=== PATIENT | female | born 1960 | race Caucasian/White ===

== ENCOUNTER 2019-06-06 06:00 | Outpatient (RCR) | payer MEDICAID, SELFPAY | END 2019-06-21 23:59 | disposition home or self-care (01) | LOC: MPT 06:00 | PROVIDERS: Family Provider Family Medicine; PCP Family Medicine; Visit Provider Family Medicine | DX: M54.5 Low back pain (principal) | CPT/HCPCS: 97110; 97161; 97530 ==

== ENCOUNTER 2019-06-22 06:00 | Outpatient (RCR) | payer MEDICAID, SELFPAY | END 2019-07-20 23:59 | disposition home or self-care (01) | LOC: MPT 06:00 | PROVIDERS: Family Provider Family Medicine; PCP Family Medicine; Visit Provider Family Medicine | DX: M54.5 Low back pain (principal) | CPT/HCPCS: 97110; 97530 ==

== ENCOUNTER 2019-07-21 06:00 | Outpatient (RCR) | payer MEDICAID, SELFPAY | END 2019-08-20 23:59 | disposition home or self-care (01) | LOC: MPT 06:00 | PROVIDERS: Family Provider Family Medicine; PCP Family Medicine; Visit Provider Family Medicine | DX: M54.5 Low back pain (principal) | CPT/HCPCS: 97110; 97530 ==

== ENCOUNTER 2019-08-21 06:00 | Outpatient (RCR) | payer MEDICAID, SELFPAY | END 2019-09-19 23:59 | disposition home or self-care (01) | LOC: MPT 06:00 | PROVIDERS: Family Provider Family Medicine; PCP Family Medicine; Visit Provider Family Medicine | DX: M54.5 Low back pain (principal) | CPT/HCPCS: 97110; 97530 ==

== ENCOUNTER 2019-09-23 15:51 | Outpatient (CLI) | payer MEDICAID, SELFPAY ==
--- NOTE | 2019-09-23 | XR_ITS ---
WS: [id number] XR lumbar spine f/e only [id number] REASON FOR EXAM: LOW BACK PAIN FINDINGS: The disc spaces and vertebral bodies are all normal. No fractures of the spinous processes, transverse processes, Lamina, pedicles, The disc spaces and vertebral bodies are all normal. Normal flexion-extension. A mild scoliotic curve convex to the left is seen. XR/XR lumbar spine f/e only [id number] IMPRESSION: Negative lumbar spine series
== END 2019-09-23 15:52 | disposition home or self-care (01) ==
PROVIDERS: Family Provider Family Medicine; PCP Family Medicine; Visit Provider Nurse Practitioner
DX: M54.5 Low back pain (principal)
CPT/HCPCS: 72120

== ENCOUNTER → 2020-03-27 15:15 | Outpatient (BNVA) | payer MEDICAID, SELFPAY | PROVIDERS: Family Provider Family Medicine; PCP Family Medicine; Visit Provider Counselor Professional | DX: F33.2 Major depressive disorder, recurrent severe without psychotic features (principal); F41.1 Generalized anxiety disorder | CPT/HCPCS: 90832 ==

== ENCOUNTER → 2020-04-06 12:42 | Outpatient (BNVA) | payer MEDICAID, SELFPAY | PROVIDERS: Family Provider Family Medicine; PCP Family Medicine; Visit Provider Psychiatry & Neurology Psychiatry | DX: F41.1 Generalized anxiety disorder (principal); F32.9 Major depressive disorder, single episode, unspecified | CPT/HCPCS: 90792 ==

== ENCOUNTER → 2020-04-07 18:00 | Outpatient (BNVA) | payer MEDICAID, SELFPAY | PROVIDERS: Family Provider Family Medicine; PCP Family Medicine; Visit Provider Family Medicine | DX: K21.9 Gastro-esophageal reflux disease without esophagitis (principal); R10.9 Unspecified abdominal pain; E16.2 Hypoglycemia, unspecified; Z13.1 Encounter for screening for diabetes mellitus; Z13.220 Encounter for screening for lipoid disorders; Z13.6 Encounter for screening for cardiovascular disorders | CPT/HCPCS: 80053; 80061; 83036; 83690; 85025; 85651; 86140 ==

== ENCOUNTER → 2020-04-10 15:11 | Outpatient (BNVA) | payer MEDICAID, SELFPAY | PROVIDERS: Family Provider Family Medicine; PCP Family Medicine; Visit Provider Counselor Professional | DX: F41.1 Generalized anxiety disorder (principal); F33.2 Major depressive disorder, recurrent severe without psychotic features | CPT/HCPCS: 90832 ==

== ENCOUNTER → 2020-04-24 15:10 | Outpatient (BNVA) | payer MEDICAID, SELFPAY | PROVIDERS: Family Provider Family Medicine; PCP Family Medicine; Visit Provider Counselor Professional | DX: F41.1 Generalized anxiety disorder (principal); F33.2 Major depressive disorder, recurrent severe without psychotic features | CPT/HCPCS: 90834 ==

== ENCOUNTER → 2020-05-29 16:09 | Outpatient (BNVA) | payer MEDICAID, SELFPAY | PROVIDERS: Family Provider Family Medicine; PCP Family Medicine; Visit Provider Counselor Professional | DX: F41.1 Generalized anxiety disorder (principal); F33.1 Major depressive disorder, recurrent, moderate | CPT/HCPCS: 90834 ==

== ENCOUNTER → 2020-08-13 07:48 | Outpatient (BNVA) | payer MEDICAID, SELFPAY | PROVIDERS: Family Provider Family Medicine; PCP Family Medicine; Visit Provider Counselor Professional | DX: F41.1 Generalized anxiety disorder (principal); F33.1 Major depressive disorder, recurrent, moderate | CPT/HCPCS: 90834 ==

== ENCOUNTER → 2020-08-27 13:48 | Outpatient (BNVA) | payer MEDICAID, SELFPAY | PROVIDERS: Family Provider Family Medicine; PCP Family Medicine; Visit Provider Counselor Professional | DX: F41.1 Generalized anxiety disorder (principal); F33.1 Major depressive disorder, recurrent, moderate | CPT/HCPCS: 90834 ==

== ENCOUNTER → 2020-10-05 09:24 | Outpatient (BNVA) | payer MEDICAID, SELFPAY | PROVIDERS: Family Provider Family Medicine; PCP Family Medicine; Referring Provider Family Medicine; Visit Provider Anesthesiology Pain Medicine | DX: G89.29 Other chronic pain (principal); M47.816 Spondylosis without myelopathy or radiculopathy, lumbar region; M51.36 Other intervertebral disc degeneration, lumbar region; Z79.891 Long term (current) use of opiate analgesic | CPT/HCPCS: 99205 ==

== ENCOUNTER 2020-10-20 06:00 | Outpatient (RCR) | payer MEDICAID, SELFPAY | END 2020-11-18 23:59 | disposition home or self-care (01) | LOC: MPT 06:00 | PROVIDERS: PCP Family Medicine; Referring Provider Anesthesiology Pain Medicine; Visit Provider Anesthesiology Pain Medicine | DX: F41.1 Generalized anxiety disorder (principal); F33.1 Major depressive disorder, recurrent, moderate; M54.5 Low back pain; G89.29 Other chronic pain | CPT/HCPCS: 90834; 97110; 97161; 97530 ==

== ENCOUNTER → 2020-11-03 08:24 | Outpatient (BNVA) | payer MEDICAID, SELFPAY | PROVIDERS: PCP Family Medicine; Visit Provider Counselor Professional | DX: F41.1 Generalized anxiety disorder (principal); F33.1 Major depressive disorder, recurrent, moderate | CPT/HCPCS: 90834 ==

== ENCOUNTER → 2020-11-17 07:40 | Outpatient (BNVA) | payer MEDICAID, SELFPAY | PROVIDERS: PCP Family Medicine; Visit Provider Counselor Professional | DX: F41.1 Generalized anxiety disorder (principal); F33.1 Major depressive disorder, recurrent, moderate | CPT/HCPCS: 90834 ==

== ENCOUNTER 2020-11-19 06:00 | Outpatient (RCR) | payer MEDICAID, SELFPAY | END 2020-12-19 23:59 | disposition home or self-care (01) | LOC: MPT 06:00 | PROVIDERS: PCP Family Medicine; Referring Provider Anesthesiology Pain Medicine; Visit Provider Anesthesiology Pain Medicine | DX: F41.1 Generalized anxiety disorder (principal); F33.1 Major depressive disorder, recurrent, moderate; M54.5 Low back pain; G89.29 Other chronic pain | CPT/HCPCS: 97032; 97110; 97530 ==

== ENCOUNTER → 2020-11-30 08:22 | Outpatient (BNVA) | payer MEDICAID, SELFPAY | PROVIDERS: PCP Family Medicine; Visit Provider Anesthesiology Pain Medicine | DX: M47.816 Spondylosis without myelopathy or radiculopathy, lumbar region (principal); M51.36 Other intervertebral disc degeneration, lumbar region | CPT/HCPCS: 99214 ==

== ENCOUNTER → 2020-12-01 07:41 | Outpatient (BNVA) | payer MEDICAID, SELFPAY | PROVIDERS: PCP Family Medicine; Visit Provider Counselor Professional | DX: F41.1 Generalized anxiety disorder (principal); F33.1 Major depressive disorder, recurrent, moderate | CPT/HCPCS: 90834 ==

== ENCOUNTER → 2020-12-07 12:46 | Outpatient (BNVA) | payer MEDICAID, SELFPAY | PROVIDERS: PCP Family Medicine; Visit Provider Anesthesiology Pain Medicine | DX: M47.816 Spondylosis without myelopathy or radiculopathy, lumbar region (principal) | CPT/HCPCS: 64493; 64494; 64495; J3490 ==

== ENCOUNTER → 2020-12-15 12:44 | Outpatient (BNVA) | payer MEDICAID, SELFPAY | PROVIDERS: PCP Family Medicine; Visit Provider Counselor Professional | DX: F41.1 Generalized anxiety disorder (principal); F33.1 Major depressive disorder, recurrent, moderate | CPT/HCPCS: 90834 ==

== ENCOUNTER 2020-12-20 06:00 | Outpatient (RCR) | payer MEDICAID, SELFPAY | END 2021-01-19 23:59 | disposition home or self-care (01) | LOC: MPT 06:00 | PROVIDERS: PCP Family Medicine; Referring Provider Anesthesiology Pain Medicine; Visit Provider Anesthesiology Pain Medicine | DX: F41.1 Generalized anxiety disorder (principal); F33.1 Major depressive disorder, recurrent, moderate; M54.5 Low back pain; G89.29 Other chronic pain | CPT/HCPCS: 97110; 97530 ==

== ENCOUNTER → 2020-12-21 09:44 | Outpatient (BNVA) | payer MEDICAID, SELFPAY | PROVIDERS: PCP Family Medicine; Visit Provider Anesthesiology Pain Medicine | DX: M47.816 Spondylosis without myelopathy or radiculopathy, lumbar region (principal); M51.36 Other intervertebral disc degeneration, lumbar region; R53.83 Other fatigue; R15.9 Full incontinence of feces; M79.604 Pain in right leg; M79.605 Pain in left leg | CPT/HCPCS: 99214 ==

== ENCOUNTER → 2020-12-29 12:30 | Outpatient (BNVA) | payer MEDICAID, SELFPAY | PROVIDERS: PCP Family Medicine; Visit Provider Counselor Professional | DX: F41.1 Generalized anxiety disorder (principal); F33.1 Major depressive disorder, recurrent, moderate | CPT/HCPCS: 90834 ==

== ENCOUNTER → 2021-01-12 09:48 | Outpatient (BNVA) | payer MEDICAID, SELFPAY | PROVIDERS: PCP Family Medicine; Visit Provider Counselor Professional | DX: F41.1 Generalized anxiety disorder (principal); F33.1 Major depressive disorder, recurrent, moderate | CPT/HCPCS: 90834 ==

== ENCOUNTER 2021-01-20 06:00 | Outpatient (RCR) | payer MEDICAID, SELFPAY | END 2021-02-18 23:59 | disposition home or self-care (01) | LOC: MPT 06:00 | PROVIDERS: PCP Family Medicine; Referring Provider Anesthesiology Pain Medicine; Visit Provider Anesthesiology Pain Medicine | DX: M54.5 Low back pain (principal); G89.29 Other chronic pain | CPT/HCPCS: 64635; 64636; 97110; 97530; J1030 ==

== ENCOUNTER → 2021-01-26 07:43 | Outpatient (BNVA) | payer MEDICAID, SELFPAY | PROVIDERS: PCP Family Medicine; Visit Provider Counselor Professional | DX: F41.1 Generalized anxiety disorder (principal); F33.1 Major depressive disorder, recurrent, moderate | CPT/HCPCS: 90834 ==

== ENCOUNTER → 2021-02-03 13:42 | Outpatient (BNVA) | payer MEDICAID, SELFPAY | PROVIDERS: PCP Family Medicine; Visit Provider Anesthesiology Pain Medicine | DX: M47.816 Spondylosis without myelopathy or radiculopathy, lumbar region (principal) | CPT/HCPCS: 64635; 64636; J1030 ==

== ENCOUNTER → 2021-02-09 07:49 | Outpatient (BNVA) | payer MEDICAID, SELFPAY | PROVIDERS: PCP Family Medicine; Visit Provider Counselor Professional | DX: F41.1 Generalized anxiety disorder (principal); F33.1 Major depressive disorder, recurrent, moderate | CPT/HCPCS: 90834 ==

== ENCOUNTER → 2021-02-17 09:22 | Outpatient (BNVA) | payer MEDICAID, SELFPAY | PROVIDERS: PCP Family Medicine; Visit Provider Anesthesiology Pain Medicine | DX: M47.816 Spondylosis without myelopathy or radiculopathy, lumbar region (principal); M51.36 Other intervertebral disc degeneration, lumbar region; M43.12 Spondylolisthesis, cervical region; M54.12 Radiculopathy, cervical region; M79.604 Pain in right leg; M79.605 Pain in left leg | CPT/HCPCS: 99214 ==

== ENCOUNTER 2021-02-19 06:00 | Outpatient (RCR) | payer MEDICAID, SELFPAY | END 2021-03-21 23:59 | disposition home or self-care (01) | LOC: MPT 06:00 | PROVIDERS: PCP Family Medicine; Visit Provider Anesthesiology Pain Medicine | DX: G89.29 Other chronic pain (principal); M54.50 Low back pain, unspecified; F41.1 Generalized anxiety disorder; F33.1 Major depressive disorder, recurrent, moderate | CPT/HCPCS: 97110; 97530 ==

== ENCOUNTER → 2021-02-25 07:55 | Outpatient (BNVA) | payer MEDICAID, SELFPAY | PROVIDERS: PCP Family Medicine; Visit Provider Counselor Professional | DX: F41.1 Generalized anxiety disorder (principal); F33.1 Major depressive disorder, recurrent, moderate | CPT/HCPCS: 90834 ==

== ENCOUNTER 2021-03-10 09:50 | Outpatient (CLI) | payer MEDICAID, SELFPAY ==
--- NOTE | 2021-03-10 10:00 | XR_ITS ---
WS: [id number] LATERAL CERVICAL SPINE: 3 view. Lateral radiographs are performed in upright neutral, flexion and extension to the patient's toleranc e. HISTORY: M43.12 - Spondylolisthesis, cervical region COMPARISON: None available. Posterior cervical alignment is normal. Mild disc space narrowing and osteophytosis from C4 to C7. Wi th flexion and extension no instability. Facet joints are normally aligned. No significant facet join t arthropathy. Soft tissues are normal. XR/XR cervical spine fl/ex [id number] IMPRESSION: 1. No cervical instability. 2. Mild degenerative disc disease and osteophytosis from C4 to C7.
== END 2021-03-10 09:51 | disposition home or self-care (01) ==
PROVIDERS: PCP Family Medicine; Visit Provider Anesthesiology Pain Medicine
DX: M43.12 Spondylolisthesis, cervical region (principal); M50.320 Other cervical disc degeneration, mid-cervical region, unspecified level
CPT/HCPCS: 72040

== ENCOUNTER → 2021-03-11 07:51 | Outpatient (BNVA) | payer MEDICAID, SELFPAY | PROVIDERS: PCP Family Medicine; Visit Provider Counselor Professional | DX: F41.1 Generalized anxiety disorder (principal); F33.1 Major depressive disorder, recurrent, moderate; F31.32 Bipolar disorder, current episode depressed, moderate | CPT/HCPCS: 90834 ==

== ENCOUNTER → 2021-03-17 08:48 | Outpatient (BNVA) | payer MEDICAID, SELFPAY | PROVIDERS: PCP Family Medicine; Visit Provider Anesthesiology Pain Medicine | DX: G89.29 Other chronic pain (principal); M47.816 Spondylosis without myelopathy or radiculopathy, lumbar region; M51.36 Other intervertebral disc degeneration, lumbar region; M54.2 Cervicalgia; M79.604 Pain in right leg; M79.605 Pain in left leg | CPT/HCPCS: 99214 ==

== ENCOUNTER 2021-03-22 06:00 | Outpatient (RCR) | payer MEDICAID, SELFPAY | END 2021-04-20 23:59 | disposition home or self-care (01) | LOC: MPT 06:00 | PROVIDERS: PCP Family Medicine; Visit Provider Anesthesiology Pain Medicine | DX: M54.50 Low back pain, unspecified; G89.29 Other chronic pain | CPT/HCPCS: 97110; 97530 ==

== ENCOUNTER → 2021-03-23 09:14 | Outpatient (BNVA) | payer MEDICAID, SELFPAY | PROVIDERS: PCP Family Medicine; Visit Provider Family Medicine | DX: I10 Essential (primary) hypertension (principal); Z13.220 Encounter for screening for lipoid disorders; Z13.6 Encounter for screening for cardiovascular disorders; J30.1 Allergic rhinitis due to pollen; K21.9 Gastro-esophageal reflux disease without esophagitis; G89.4 Chronic pain syndrome; M51.36 Other intervertebral disc degeneration, lumbar region | CPT/HCPCS: 80053; 80061 ==

== ENCOUNTER → 2021-03-25 07:50 | Outpatient (BNVA) | payer MEDICAID, SELFPAY | PROVIDERS: PCP Family Medicine; Visit Provider Counselor Professional | DX: F41.1 Generalized anxiety disorder (principal); F33.1 Major depressive disorder, recurrent, moderate | CPT/HCPCS: 90834 ==

== ENCOUNTER 2021-04-21 06:00 | Outpatient (RCR) | payer MEDICAID, SELFPAY | END 2021-05-11 10:24 | disposition home or self-care (01) | LOC: MPT 06:00 | PROVIDERS: PCP Family Medicine; Visit Provider Anesthesiology Pain Medicine | DX: G89.29 Other chronic pain (principal); M54.50 Low back pain, unspecified; F41.1 Generalized anxiety disorder; F33.1 Major depressive disorder, recurrent, moderate | CPT/HCPCS: 97110; 97530 ==

== ENCOUNTER → 2021-04-22 07:52 | Outpatient (BNVA) | payer MEDICAID, SELFPAY | PROVIDERS: PCP Family Medicine; Visit Provider Counselor Professional | DX: F41.1 Generalized anxiety disorder (principal); F33.1 Major depressive disorder, recurrent, moderate | CPT/HCPCS: 90834 ==

== ENCOUNTER → 2021-05-06 07:55 | Outpatient (BNVA) | payer MEDICAID, SELFPAY | PROVIDERS: PCP Family Medicine; Visit Provider Counselor Professional | DX: F41.1 Generalized anxiety disorder (principal); F33.1 Major depressive disorder, recurrent, moderate | CPT/HCPCS: 90834 ==

== ENCOUNTER → 2021-05-27 08:03 | Outpatient (BNVA) | payer MEDICAID, SELFPAY | PROVIDERS: PCP Family Medicine; Visit Provider Counselor Professional | DX: F41.1 Generalized anxiety disorder (principal); F33.1 Major depressive disorder, recurrent, moderate | CPT/HCPCS: 90834 ==

== ENCOUNTER → 2021-06-17 07:55 | Outpatient (BNVA) | payer MEDICAID, SELFPAY | PROVIDERS: PCP Family Medicine; Visit Provider Counselor Professional | DX: F41.1 Generalized anxiety disorder (principal); F33.2 Major depressive disorder, recurrent severe without psychotic features | CPT/HCPCS: 90834 ==

== ENCOUNTER → 2021-07-01 07:50 | Outpatient (BNVA) | payer MEDICAID, SELFPAY | PROVIDERS: PCP Family Medicine; Visit Provider Counselor Professional | DX: F41.1 Generalized anxiety disorder (principal); F33.1 Major depressive disorder, recurrent, moderate | CPT/HCPCS: 90834 ==

== ENCOUNTER → 2021-07-29 08:05 | Outpatient (BNVA) | payer MEDICAID, SELFPAY | PROVIDERS: PCP Family Medicine; Visit Provider Counselor Professional | DX: F41.1 Generalized anxiety disorder (principal); F33.2 Major depressive disorder, recurrent severe without psychotic features | CPT/HCPCS: 90837; 90834 ==

== ENCOUNTER → 2021-08-26 08:04 | Outpatient (BNVA) | payer MEDICAID, SELFPAY | PROVIDERS: PCP Family Medicine; Visit Provider Counselor Professional | DX: F33.1 Major depressive disorder, recurrent, moderate (principal); F41.1 Generalized anxiety disorder | CPT/HCPCS: 90834 ==

== ENCOUNTER → 2021-09-09 07:55 | Outpatient (BNVA) | payer MEDICAID, SELFPAY | PROVIDERS: PCP Family Medicine; Visit Provider Counselor Professional | DX: F33.1 Major depressive disorder, recurrent, moderate (principal); F41.1 Generalized anxiety disorder | CPT/HCPCS: 90834 ==

== ENCOUNTER → 2021-10-06 08:43 | Outpatient (BNVA) | payer MEDICAID, SELFPAY | PROVIDERS: PCP Family Medicine; Visit Provider Family Medicine | DX: J45.20 Mild intermittent asthma, uncomplicated (principal); J30.1 Allergic rhinitis due to pollen; K52.9 Noninfective gastroenteritis and colitis, unspecified; I10 Essential (primary) hypertension; K21.9 Gastro-esophageal reflux disease without esophagitis; Z13.1 Encounter for screening for diabetes mellitus; R73.9 Hyperglycemia, unspecified; R53.83 Other fatigue; Z13.29 Encounter for screening for other suspected endocrine disorder; Z85.828 Personal history of other malignant neoplasm of skin | CPT/HCPCS: 80053; 83036; 84443 ==

== ENCOUNTER → 2021-10-14 10:05 | Outpatient (BNVA) | payer MEDICAID, SELFPAY | PROVIDERS: PCP Family Medicine; Visit Provider Counselor Professional | DX: F33.2 Major depressive disorder, recurrent severe without psychotic features (principal); F41.1 Generalized anxiety disorder | CPT/HCPCS: 90834 ==

== ENCOUNTER → 2021-10-28 10:44 | Outpatient (BNVA) | payer MEDICAID, SELFPAY | PROVIDERS: PCP Family Medicine; Visit Provider Counselor Professional | DX: F41.1 Generalized anxiety disorder (principal); F33.2 Major depressive disorder, recurrent severe without psychotic features | CPT/HCPCS: 90834 ==

== ENCOUNTER → 2021-11-11 08:38 | Outpatient (BNVA) | payer MEDICAID, SELFPAY | PROVIDERS: PCP Family Medicine; Visit Provider Counselor Professional | DX: F33.1 Major depressive disorder, recurrent, moderate (principal); F41.1 Generalized anxiety disorder | CPT/HCPCS: 90834 ==

== ENCOUNTER → 2022-02-02 14:14 | Outpatient (BNVA) | payer MEDICAID, SELFPAY | PROVIDERS: PCP Family Medicine; Visit Provider Family Medicine | DX: E11.9 Type 2 diabetes mellitus without complications (principal); I10 Essential (primary) hypertension; Z68.34 Body mass index [BMI] 34.0-34.9, adult; F33.1 Major depressive disorder, recurrent, moderate | CPT/HCPCS: 80053; 83036 ==

== ENCOUNTER → 2022-04-05 08:32 | Outpatient (BNVA) | payer MEDICAID, SELFPAY | PROVIDERS: PCP Family Medicine; Visit Provider Family Medicine | DX: E11.9 Type 2 diabetes mellitus without complications (principal); K21.9 Gastro-esophageal reflux disease without esophagitis; I10 Essential (primary) hypertension; J30.1 Allergic rhinitis due to pollen; K52.9 Noninfective gastroenteritis and colitis, unspecified; J45.20 Mild intermittent asthma, uncomplicated; J45.909 Unspecified asthma, uncomplicated; Z13.220 Encounter for screening for lipoid disorders; Z13.6 Encounter for screening for cardiovascular disorders | CPT/HCPCS: 80053; 80061; 83036 ==

== ENCOUNTER → 2022-10-04 08:38 | Outpatient (BNVA) | payer MEDICARE, MEDICAID, SELFPAY | PROVIDERS: PCP Family Medicine; Visit Provider Family Medicine | DX: J45.20 Mild intermittent asthma, uncomplicated (principal); E11.9 Type 2 diabetes mellitus without complications; J30.1 Allergic rhinitis due to pollen; K52.9 Noninfective gastroenteritis and colitis, unspecified; J30.9 Allergic rhinitis, unspecified; K21.9 Gastro-esophageal reflux disease without esophagitis; I10 Essential (primary) hypertension | CPT/HCPCS: 80048; 83036 ==

== ENCOUNTER → 2023-02-13 07:55 | Outpatient (BNVA) | payer MEDICARE, MEDICAID, SELFPAY | PROVIDERS: PCP Family Medicine; Visit Provider Nurse Practitioner Family | DX: L82.1 Other seborrheic keratosis (principal); D18.01 Hemangioma of skin and subcutaneous tissue; D48.5 Neoplasm of uncertain behavior of skin; L91.8 Other hypertrophic disorders of the skin; L57.0 Actinic keratosis; Z08 Encounter for follow-up examination after completed treatment for malignant neoplasm; Z85.820 Personal history of malignant melanoma of skin | CPT/HCPCS: 11102; 11200; 17000; 99213 ==

== ENCOUNTER 2023-02-28 14:26 | Outpatient (CLI) | payer MEDICARE, MEDICAID, SELFPAY ==
--- NOTE | 2023-02-28 14:42 | MM_ITS ---
WS: [id number] DIAGNOSTIC BILATERAL DIGITAL BREAST TOMOSYNTHESIS MAMMOGRAPHY WITH CAD Bilateral breast ultrasound, limited HISTORY: N63.20 - Unspecified lump in the left breast, unspecified... COMPARISON: 03/29/2007 TECHNIQUE: Bilateral craniocaudad, mediolateral oblique, and mediolateral views are submitted with to mosgaro and MARILU. Computer aided detection utilized. Breast composition: There are scattered areas of fibroglandular density. 13 mm lobulated mass in the lateral RIGHT breast near 9:00. Additional asymmetry in the central LEFT breast. No abnormality corre sponding to the area of pain. Bilateral breast ultrasound, limited. RIGHT breast: Multiloculated cystic 9:00 in the RIGHT breast 5 cm from the nipple measures 1.6 x 1.1 x 0.7 cm. No i ncreased vascularity. LEFT breast: Duct filled with debris posterior to the nipple. There is no increased vascularity. This corresponds to the asymmetry in the central LEFT breast. In the area of pain directed by the patient towards 4:00 there is normal soft tissue. IMPRESSION: MM/[place] [id number] BI-RADS: 3-Probably Benign FOLLOW UP: 6 Month Follow-up RIGHT breast ultrasound 6-month follow-up, limited. Reevaluate the complex cyst at 9:00. LEFT breast ultrasound 6-month follow-up, limited. Reevaluate debris-filled choco t. Favor duct ectasia.
== END 2023-02-28 14:27 | disposition home or self-care (01) ==
LOC: RAD 14:26
PROVIDERS: PCP Family Medicine; Visit Provider Family Medicine
DX: N63.23 Unspecified lump in the left breast, lower outer quadrant (principal); N60.01 Solitary cyst of right breast
CPT/HCPCS: 76642; 77062; G0279

== ENCOUNTER → 2023-03-06 08:04 | Outpatient (BNVA) | payer MEDICARE, MEDICAID, SELFPAY | PROVIDERS: PCP Family Medicine; Visit Provider Dermatology | DX: C44.319 Basal cell carcinoma of skin of other parts of face (principal) | CPT/HCPCS: 12052; 17311 ==

== ENCOUNTER → 2023-04-05 09:57 | Outpatient (BNVA) | payer MEDICARE, MEDICAID, SELFPAY | PROVIDERS: PCP Family Medicine; Visit Provider Family Medicine | DX: M79.671 Pain in right foot (principal); L60.0 Ingrowing nail; Z12.11 Encounter for screening for malignant neoplasm of colon; E11.9 Type 2 diabetes mellitus without complications; K21.9 Gastro-esophageal reflux disease without esophagitis; I10 Essential (primary) hypertension; J30.9 Allergic rhinitis, unspecified; K52.9 Noninfective gastroenteritis and colitis, unspecified; J45.20 Mild intermittent asthma, uncomplicated; Z23 Encounter for immunization; N63.20 Unspecified lump in the left breast, unspecified quadrant; Z68.28 Body mass index [BMI] 28.0-28.9, adult; G89.4 Chronic pain syndrome; M51.36 Other intervertebral disc degeneration, lumbar region | CPT/HCPCS: 80048; 80061; 83036 ==

== ENCOUNTER → 2023-04-11 09:20 | Outpatient (BNVA) | payer MEDICARE, MEDICAID, SELFPAY | PROVIDERS: PCP Family Medicine; Referring Provider Family Medicine; Visit Provider Surgery | DX: Z12.11 Encounter for screening for malignant neoplasm of colon (principal); K21.9 Gastro-esophageal reflux disease without esophagitis | CPT/HCPCS: 99024; 99204 ==

== ENCOUNTER → 2023-04-18 15:06 | Outpatient (BNVA) | payer MEDICARE, MEDICAID, SELFPAY | PROVIDERS: PCP Family Medicine; Visit Provider Podiatrist Foot & Ankle Surgery | DX: B35.1 Tinea unguium (principal); G62.9 Polyneuropathy, unspecified; E11.42 Type 2 diabetes mellitus with diabetic polyneuropathy | CPT/HCPCS: 11721; 99203 ==

== ENCOUNTER 2023-06-21 06:59 | Day surgery (SDC) | payer MEDICARE, SELFPAY ==
[2023-06-21 07:18] VITALS: BP 135/78; PULSE 96; RESP 18; TEMP 36.4; O2SAT 97; BMI 28.3
--- NOTE | 2023-06-21 07:23 | P.ANESASSM_ITS ---
Pre-Anesthetic Assessment Height/Weight: Height 1.6 m Weight 72.575 kg Temp Pulse Resp BP Pulse Ox O2 Del Method 97.6 F 96 18 135/78 97 Room Air 06/21/23 07:18 06/21/23 07:18 06/21/23 07:18 06/21/23 07:18 06/21/23 07:18 06/21/23 07:18 Preop Diagnosis: Gerd, screening colonoscopy Operation Date: 06/21/23 08:15 Proposed Procedures p [id number] egd [id number] colon G0121 screen colon A risk Z12.11,K21.9(Not Applicable) - Grzegorz Irizarry DO s Colonoscopy(Not Applicable) - Grzegorz Irizarry DO Familial anesthetic complications: NONE Was Beta Madeline taken within 24 hours: N/A Was Clonidine taken within 24 hours: N/A Last intake: Intake Last Liquid Date 06/20/23 Last Liquid Time 16:00 Last Solid Date 06/19/23 Last Solid Time 16:00 Social No alcohol and No tobacco Exam alert, oriented x 3, clear to auscultation bilaterally and regular rate & rhythm Airway Submandibular: within normal limits Cervical ROM: within normal limits Mallampati: Class II Dentition: full History/ROS No significant history except as noted Pulmonary Has seasonal allergy. 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 Neuropsych Anxiety and Depression Anesthetic Plan ASA status: 3 Anesthesia: Anesthesia Evaluation, MAC and Local Only Medications/Allergies Home Medications Medication Instructions Recorded Confirmed Last Taken Type nebulizer accessories #1 ea 08/11/20 06/20/23 Unknown Rx lancets #100 ea 02/07/22 06/20/23 Unknown Rx blood-glucose meter (OneTouch #1 kit 06/13/22 06/20/23 Unknown Rx Verio Flex Meter) fluticasone propionate 50 1 spray intranasal Q12H #15.8 mL 10/04/22 06/20/23 06/19/23 Rx mcg/actuation nasal spray,suspension alcohol swabs 1 pad topical DAILY PRN as needed 02/20/23 06/20/23 06/19/23 Rx to check blood sugar once daily 30 days #100 ea duloxetine 20 mg capsule,delayed See Rx Instructions .Route 1106/20/23 06/20/23 Rx release .COMPLEX #30 caps lorazepam 1 mg tablet 1.5 mg (1.5 x 1 mg) PO DAILY PRN 03/22/23 06/20/23 06/19/23 Rx anxiety 30 days #45 tabs albuterol sulfate 90 mcg/actuation See Rx Instructions .Route 04/05/23 06/20/23 06/20/23 Rx aerosol inhaler (Ventolin HFA) .COMPLEX #18 grams cholestyramine (with sugar) 4 gram 4 g PO BID #60 ea 04/05/23 06/20/23 06/20/23 Rx powder for susp in a packet gabapentin 600 mg tablet 600 mg PO TID 30 days #90 tabs 04/05/23 06/20/23 06/20/23 Rx levocetirizine 5 mg tablet 5 mg PO DAILY allergy symptoms 30 04/05/23 06/20/23 06/20/23 Rx days #30 tabs metoprolol succinate 25 mg See Rx Instructions .Route 04/05/23 06/20/23 06/20/23 Rx tablet,extended release 24 hr .COMPLEX #30 tabs tizanidine 4 mg tablet See Rx Instructions .Route 04/05/23 06/20/23 06/20/23 Rx .COMPLEX #60 tabs pantoprazole 40 mg tablet,delayed 40 mg PO BID 6 weeks #84 tabs 04/11/23 06/20/23 06/20/23 Rx release (Protonix) blood sugar diagnostic (Blood #50 ea 04/14/23 06/20/23 Unknown Rx Glucose Test strips) diabetic shoes with 3 inserts #1 ea 04/18/23 06/20/23 Unknown Rx albuterol sulfate 2.5 mg/3 mL See Rx Instructions .Route 06/01/23 06/20/23 06/19/23 Rx (0.083 %) solution for nebulization .COMPLEX #180 mL tirzepatide 5 mg/0.5 mL 5 mg (0.5 mL) SUBCUT .WEEKLY 06/13/23 06/20/23 06/07/23 Rx subcutaneous pen injector days #2 mL Allergies Allergy/AdvReac Type Severity Reaction Status Date / Time buspirone Allergy hives Verified 04/18/23 15:22 latex Allergy rash Verified 04/18/23 15:22 codeine AdvReac Unknown ADR-Irritab Verified 04/18/23 15:22 le adhesive tape AdvReac ALGY-Bliste Verified 04/18/23 15:22 r COUNT INCLUDES THE [facility] Anesthesia Medical History IBS (irritable bowel syndrome) Psychiatric care Hypertension GERD (gastroesophageal reflux disease) MDD (major depressive disorder) Generalized anxiety disorder Surgical History H/O total hysterectomy Social History Smoking and tobacco/nicotine status: never used tobacco/nicotine Second hand smoke exposure: No Alcohol intake: never Substance/Drug Use: never Current gender identity: Female Female Reproductive History Spontaneous abortions: No Data Anesthesia Cardiac Studies: No Data to Display
[2023-06-21] MEDS: sodium chloride 0.9% 1,000 ML 30 ML IV (07:31)
[2023-06-21 07:33] LABS: Glucose Point of Care 121 mg/dL (70-110)
--- NOTE | 2023-06-21 08:04 | PM.HP ---
Providers/Chief Complaint Primary Care Provider: Caprice Ramirez MD Chief Complaint: Z12.11, K21.9 History of Present Illness Marcia Saez is a 63 year old female Review of Systems General: Reports: 10 or more systems reviewed and unremarkable except in HPI and below Medications/Allergies Home Medications Medication Instructions Recorded Confirmed Last Taken Type nebulizer accessories #1 ea 08/11/20 06/20/23 Unknown Rx lancets #100 ea 02/07/22 06/20/23 Unknown Rx blood-glucose meter (OneTouch #1 kit 06/13/22 06/20/23 Unknown Rx Verio Flex Meter) fluticasone propionate 50 1 spray intranasal Q12H #15.8 mL 10/04/22 06/20/23 06/19/23 Rx mcg/actuation nasal spray,suspension alcohol swabs 1 pad topical DAILY PRN as needed 02/20/23 06/20/23 06/19/23 Rx to check blood sugar once daily 30 days #100 ea duloxetine 20 mg capsule,delayed See Rx Instructions .Route 03/22/23 06/20/23 06/20/23 Rx release .COMPLEX #30 caps lorazepam 1 mg tablet 1.5 mg (1.5 x 1 mg) PO DAILY PRN 03/22/23 06/20/23 06/19/23 Rx anxiety 30 days #45 tabs albuterol sulfate 90 mcg/actuation See Rx Instructions .Route 04/05/23 06/20/23 06/20/23 Rx aerosol inhaler (Ventolin HFA) .COMPLEX #18 grams cholestyramine (with sugar) 4 gram 4 g PO BID #60 ea 04/05/23 06/20/23 06/20/23 Rx powder for susp in a packet gabapentin 600 mg tablet 600 mg PO TID 30 days #90 tabs 04/05/23 06/20/23 06/20/23 Rx levocetirizine 5 mg tablet 5 mg PO DAILY allergy symptoms 30 04/05/23 06/20/23 06/20/23 Rx days #30 tabs metoprolol succinate 25 mg See Rx Instructions .Route 04/05/23 06/20/23 06/20/23 Rx tablet,extended release 24 hr .COMPLEX #30 tabs tizanidine 4 mg tablet See Rx Instructions .Route 04/05/23 06/20/23 06/20/23 Rx .COMPLEX #60 tabs pantoprazole 40 mg tablet,delayed 40 mg PO BID 6 weeks #84 tabs 04/11/23 06/20/23 06/20/23 Rx release (Protonix) blood sugar diagnostic (Blood #50 ea 04/14/23 06/20/23 Unknown Rx Glucose Test strips) diabetic shoes with 3 inserts #1 ea 04/18/23 06/20/23 Unknown Rx albuterol sulfate 2.5 mg/3 mL See Rx Instructions .Route 06/01/23 06/20/23 06/19/23 Rx (0.083 %) solution for nebulization .COMPLEX #180 mL tirzepatide 5 mg/0.5 mL 5 mg (0.5 mL) SUBCUT .WEEKLY 06/13/23 06/20/23 06/07/23 Rx subcutaneous pen injector days #2 mL Allergies Allergy/AdvReac Type Severity Reaction Status Date / Time buspirone Allergy hives Verified 04/18/23 15:22 latex Allergy rash Verified 04/18/23 15:22 codeine AdvReac Unknown ADR-Irritab Verified 04/18/23 15:22 le adhesive tape AdvReac ALGY-Bliste Verified 04/18/23 15:22 r PFSH Acute PFSH: Medical History IBS (irritable bowel syndrome) Psychiatric care Hypertension GERD (gastroesophageal reflux disease) MDD (major depressive disorder) Generalized anxiety disorder Surgical History H/O total hysterectomy Social History Smoking and tobacco/nicotine status: never used tobacco/nicotine Second hand smoke exposure: No Alcohol intake: never Substance/Drug Use: never Current gender identity: Female Female Reproductive History: Spontaneous abortions: No Vitals/I&O/Wt Last Vital Signs Temp 97.6 F 06/21/23 07:18 Pulse 96 06/21/23 07:18 Resp 18 06/21/23 07:18 BP 135/78 06/21/23 07:18 Pulse Ox 97 06/21/23 07:18 O2 Del Method Room Air 06/21/23 07:18 Weight last 48 hrs Weight 160 lb A&P Assessment and plan (1) GERD (gastroesophageal reflux disease): Qualifiers: Esophagitis presence: without esophagitis Qualified Code(s): K21.9 - Gastro-esophageal reflux disease without esophagitis (2) Colon cancer screening: Plan EGD and colonoscopy Attestations Medical Necessity Statement*: Home Coding Level of Care Code Acute Code for Chg Fwd Diagnoses Gastroesophageal reflux disease without esophagitis K21.9 Esophagitis presence: without esophagitis Colon cancer screening Z12.11
[2023-06-21 08:42] VITALS: BP 94/66; PULSE 78; RESP 18; TEMP 36.1; O2SAT 95
[2023-06-21 09:00] VITALS: BP 120/58; PULSE 79; RESP 16; O2SAT 95
--- NOTE | 2023-06-21 09:15 | ANE.PACU2 ---
Inpatient post-anesthesia follow up: Airway intact: Yes Vital signs: Temperature 97.0 F Pulse Rate 79 Respiratory Rate 16 Blood Pressure 120/58 Pulse Oximetry 95 Oxygen Delivery Me thod Room Air Oxygen Flow Rate Fraction of Inspir ed Oxygen Hydration adequate: Yes Nausea and vomiting: No Pain level: 1 Mental status: Baseline
== END 2023-06-21 09:16 | disposition home or self-care (01) ==
PROVIDERS: PCP Family Medicine; Visit Provider Surgery
PROC: 0DJ08ZZ Inspection of Upper Intestinal Tract, Via Natural or Artificial Opening Endoscopic (ICD-10-PCS; CPT 43235; principal; 2023-06-21 08:15)
PROC: 0DJD8ZZ Inspection of Lower Intestinal Tract, Via Natural or Artificial Opening Endoscopic (ICD-10-PCS; CPT 45378; 2023-06-21 08:15)
DX: Z12.11 Encounter for screening for malignant neoplasm of colon (principal); K64.0 First degree hemorrhoids; K44.9 Diaphragmatic hernia without obstruction or gangrene; K25.9 Gastric ulcer, unspecified as acute or chronic, without hemorrhage or perforation; I10 Essential (primary) hypertension; E11.9 Type 2 diabetes mellitus without complications; Z79.4 Long term (current) use of insulin; K21.9 Gastro-esophageal reflux disease without esophagitis
CPT/HCPCS: 36416; 43239; 82962; 88305; G0121; J2704; J7030

== ENCOUNTER → 2023-07-07 08:43 | Outpatient (BNVA) | payer MEDICARE, SELFPAY | PROVIDERS: PCP Family Medicine; Visit Provider Surgery | DX: Z09 Encounter for follow-up examination after completed treatment for conditions other than malignant neoplasm (principal); K21.9 Gastro-esophageal reflux disease without esophagitis; K64.8 Other hemorrhoids | CPT/HCPCS: 99214 ==

== ENCOUNTER → 2023-07-10 09:33 | Outpatient (BNVA) | payer MEDICARE, SELFPAY | PROVIDERS: PCP Family Medicine; Visit Provider Podiatrist Foot & Ankle Surgery | DX: B35.1 Tinea unguium (principal); G62.9 Polyneuropathy, unspecified; E11.42 Type 2 diabetes mellitus with diabetic polyneuropathy | CPT/HCPCS: 11721 ==

== ENCOUNTER → 2023-09-04 10:11 | Outpatient (BNVA) | payer MEDICARE, SELFPAY | PROVIDERS: PCP Family Medicine; Visit Provider Family Medicine | DX: E11.9 Type 2 diabetes mellitus without complications (principal); I10 Essential (primary) hypertension | CPT/HCPCS: 80053; 83036 ==

== ENCOUNTER 2023-09-05 10:52 | Outpatient (CLI) | payer MEDICARE, SELFPAY ==
--- NOTE | 2023-09-05 10:59 | US_ITS ---
WS: [id number] ULTRASOUND BILATERAL BREAST HISTORY: 6MFU ABNORMAL MAMMO COMPARISON: 02/28/2023 TECHNIQUE: 2-D and Doppler. RIGHT: No increase in size of the complex cystic mass in the RIGHT breast at 9:00 5 cm from the nippl e. This may be 2 adjacent cysts or a complex cyst with a thin septation. Cyst measures 1.0 x 0.6 x 1. 0 cm. No solid component. No increased vascularity. LEFT: Previously described ectatic duct with debris is not identified today. IMPRESSION: US/US breast BI limited* [id number] BI-RADS: 2-Benign FOLLOW-UP: See Report Return to annual screening mammography. No additional follow-up of these breast abnormalities necessary.
== END 2023-09-05 10:53 | disposition home or self-care (01) ==
LOC: RAD 10:53
PROVIDERS: PCP Family Medicine; Visit Provider Family Medicine
DX: R92.8 Other abnormal and inconclusive findings on diagnostic imaging of breast (principal)
CPT/HCPCS: 76642

== ENCOUNTER → 2023-09-13 08:04 | Outpatient (BNVA) | payer MEDICARE, SELFPAY | PROVIDERS: PCP Family Medicine; Visit Provider Nurse Practitioner Family | DX: L21.8 Other seborrheic dermatitis (principal); L57.0 Actinic keratosis; L82.1 Other seborrheic keratosis; D18.01 Hemangioma of skin and subcutaneous tissue; L91.8 Other hypertrophic disorders of the skin | CPT/HCPCS: 17000; 99214 ==

== ENCOUNTER → 2024-01-30 09:58 | Outpatient (BNVA) | payer MEDICARE, SELFPAY | PROVIDERS: PCP Family Medicine; Visit Provider Podiatrist Foot & Ankle Surgery | DX: B35.1 Tinea unguium (principal); G62.9 Polyneuropathy, unspecified; E11.42 Type 2 diabetes mellitus with diabetic polyneuropathy | CPT/HCPCS: 11721 ==

== ENCOUNTER → 2024-02-26 14:39 | Outpatient (BNVA) | payer MEDICARE, MEDICAID, SELFPAY | PROVIDERS: PCP Family Medicine; Visit Provider Family Medicine | DX: E11.9 Type 2 diabetes mellitus without complications (principal) | CPT/HCPCS: 80048; 80061; 83036 ==

== ENCOUNTER → 2024-03-14 08:00 | Outpatient (BNVA) | payer MEDICARE, SELFPAY | PROVIDERS: PCP Family Medicine; Visit Provider Nurse Practitioner Family | DX: L21.8 Other seborrheic dermatitis (principal); L82.1 Other seborrheic keratosis; D18.01 Hemangioma of skin and subcutaneous tissue; Z85.820 Personal history of malignant melanoma of skin; L57.0 Actinic keratosis; L82.0 Inflamed seborrheic keratosis | CPT/HCPCS: 17000; 17110; 99213 ==

== ENCOUNTER 2024-03-28 09:11 | Outpatient (CLI) | payer MEDICARE, MEDICAID, SELFPAY ==
--- NOTE | 2024-03-28 09:40 | MM_ITS ---
WS: [id number] SCREENING DIGITAL BREAST TOMOSYNTHESIS MAMMOGRAM WITH CAD HISTORY: Z12.39 - Encounter for other screening for malignant neop... COMPARISON: 02/28/2023, breast ultrasound 09/05/2023 and 02/28/2023 Bilateral CC and MLO with tomosynthesis and synthetic mammography submitted. Computer aided detection analyzed. Breast composition: There are scattered areas of fibroglandular density. Reidentified is an irregular shaped mass with microlobulated margins of increased density. This mass is reidentified in the poste rior lateral RIGHT breast near 9:00. No change in size since 02/28/2023. Prior ultrasounds consistent with a complex cyst. No additional abnormalities. MM/MM scr BI tomosynthesis [id number] IMPRESSION: BI-RADS: 0 - Incomplete: Need additional imaging evaluation. FOLLOW UP: Need Additional Imaging 1. Mass in the RIGHT breast is reidentified. This mass was described as a comp cheyanne cyst on prior ultrasounds. This may be a cyst but the margins are very slig htly microlobulated and not smooth. Suggest at this time additional ultrasound evaluation of the RIGHT breast mass towards 9:00 to confirm this is a cyst. Mas s has not increased in size.
== END 2024-03-28 09:12 | disposition home or self-care (01) ==
PROVIDERS: PCP Family Medicine; Visit Provider Family Medicine
DX: Z12.31 Encounter for screening mammogram for malignant neoplasm of breast (principal); N63.13 Unspecified lump in the right breast, lower outer quadrant; R92.323 Mammographic fibroglandular density, bilateral breasts
CPT/HCPCS: 77063; 77067

== ENCOUNTER → 2024-04-03 10:53 | Outpatient (BNVA) | payer MEDICARE, MEDICAID, SELFPAY | PROVIDERS: PCP Family Medicine; Visit Provider Podiatrist Foot & Ankle Surgery | DX: B35.1 Tinea unguium (principal); G62.9 Polyneuropathy, unspecified; E11.42 Type 2 diabetes mellitus with diabetic polyneuropathy | CPT/HCPCS: 11721 ==

== ENCOUNTER → 2024-06-05 10:14 | Outpatient (BNVA) | payer MEDICARE, SELFPAY | PROVIDERS: PCP Family Medicine; Visit Provider Podiatrist Foot & Ankle Surgery | DX: B35.1 Tinea unguium (principal); G62.9 Polyneuropathy, unspecified; E11.42 Type 2 diabetes mellitus with diabetic polyneuropathy | CPT/HCPCS: 11721 ==

== ENCOUNTER → 2024-08-21 08:10 | Outpatient (BNVA) | payer MEDICARE, SELFPAY | PROVIDERS: PCP Family Medicine; Visit Provider Podiatrist Foot & Ankle Surgery | DX: E11.42 Type 2 diabetes mellitus with diabetic polyneuropathy (principal); B35.1 Tinea unguium; G62.9 Polyneuropathy, unspecified | CPT/HCPCS: 11721 ==

== ENCOUNTER → 2024-09-12 07:59 | Outpatient (BNVA) | payer MEDICARE, SELFPAY | PROVIDERS: PCP Family Medicine; Visit Provider Nurse Practitioner Family | DX: L81.4 Other melanin hyperpigmentation (principal); L57.8 Other skin changes due to chronic exposure to nonionizing radiation; D22.5 Melanocytic nevi of trunk; L82.1 Other seborrheic keratosis; Z85.820 Personal history of malignant melanoma of skin; Z08 Encounter for follow-up examination after completed treatment for malignant neoplasm; Z85.828 Personal history of other malignant neoplasm of skin; L82.0 Inflamed seborrheic keratosis; R20.8 Other disturbances of skin sensation; L53.8 Other specified erythematous conditions; Z78.9 Other specified health status; Z29.89 Encounter for other specified prophylactic measures | CPT/HCPCS: 17110; 99213 ==

== ENCOUNTER → 2024-10-16 09:30 | Outpatient (BNVA) | payer MEDICARE, MEDICAID, SELFPAY | PROVIDERS: PCP Family Medicine; Visit Provider Family Medicine | DX: E11.9 Type 2 diabetes mellitus without complications (principal); I10 Essential (primary) hypertension | CPT/HCPCS: 80053; 83036 ==

== ENCOUNTER → 2024-10-24 07:57 | Outpatient (BNVA) | payer MEDICARE, SELFPAY | PROVIDERS: PCP Family Medicine; Visit Provider Podiatrist Foot & Ankle Surgery | DX: E11.42 Type 2 diabetes mellitus with diabetic polyneuropathy (principal); B35.1 Tinea unguium; G62.9 Polyneuropathy, unspecified; R60.9 Edema, unspecified | CPT/HCPCS: 11721; 99213 ==

== ENCOUNTER 2024-11-05 06:58 | Outpatient (CLI) | payer MEDICARE, SELFPAY ==
--- NOTE | 2024-11-05 07:15 | US_ITS ---
WS: [id number] ULTRASOUND RIGHT BREAST, limited HISTORY: Follow-up complex cyst RIGHT breast. COMPARISON: 09/05/2023, 02/28/2023. TECHNIQUE: 2-D and Doppler. Reidentified is the complex hypoechoic mass in the RIGHT breast at 9:00, 5 cm from the nipple. Mass is ovoid measuring 1.1 x 0.9 x 0.5 cm. Mass continues to decrease in size since 02/28/2023. No increased vascularity. US/US breast RT limited* [id number] IMPRESSION: BI-RADS: 2- Benign FOLLOW-UP: See Report Return to annual screening mammography. Patient screening mammography should be performed in March 2025. No additional imaging necessary of the RIGHT breas t complex cysts as it has continued to decrease in size. If the mass noted orig inally on mammography increases in size additional ultrasound may be necessary at that time.
== END 2024-11-05 06:59 | disposition home or self-care (01) ==
PROVIDERS: PCP Family Medicine; Visit Provider Family Medicine
DX: R92.8 Other abnormal and inconclusive findings on diagnostic imaging of breast (principal); N60.01 Solitary cyst of right breast; N63.15 Unspecified lump in the right breast, overlapping quadrants
CPT/HCPCS: 76642

== ENCOUNTER → 2024-12-25 08:40 | Outpatient (BNVA) | payer MEDICARE, SELFPAY | PROVIDERS: PCP Family Medicine; Visit Provider Podiatrist Foot & Ankle Surgery | DX: E11.42 Type 2 diabetes mellitus with diabetic polyneuropathy (principal); B35.1 Tinea unguium; G62.9 Polyneuropathy, unspecified; R60.9 Edema, unspecified | CPT/HCPCS: 11721; 99213 ==

== ENCOUNTER → 2025-02-25 06:57 | Outpatient (BNVA) | payer MEDICARE, MEDICAID, SELFPAY | PROVIDERS: PCP Family Medicine; Visit Provider Podiatrist Foot & Ankle Surgery | DX: E11.42 Type 2 diabetes mellitus with diabetic polyneuropathy (principal); B35.1 Tinea unguium; G62.9 Polyneuropathy, unspecified; E11.8 Type 2 diabetes mellitus with unspecified complications; R60.9 Edema, unspecified | CPT/HCPCS: 11721; 99213 ==

== ENCOUNTER → 2025-04-16 09:00 | Outpatient (BNVA) | payer MEDICARE, MEDICAID, SELFPAY | PROVIDERS: PCP Family Medicine; Visit Provider Family Medicine | DX: E11.9 Type 2 diabetes mellitus without complications (principal); I10 Essential (primary) hypertension | CPT/HCPCS: 80048; 80061; 83036 ==

== ENCOUNTER 2025-04-24 07:58 | Outpatient (CLI) | payer MEDICARE, SELFPAY ==
--- NOTE | 2025-04-24 08:40 | MM_ITS ---
WS: [id number] BILATERAL SCREENING DIGITAL TOMOSYNTHESIS MAMMOGRAM WITH CAD HISTORY: Z12.39 - Encounter for other screening for malignant neop... COMPARISON: 03/28/2024, 02/28/2023, 03/29/2007 Bilateral CC and MLO views with tomosynthesis and synthetic mammography submitted. Computer aided detection analyzed. Breast composition: There are scattered areas of fibroglandular density. No suspicious masses, microcalcifications or architectural distortion. Term stability of asymmetries in the LEFT breast. There is a lobulated mass in the anterior breast which has been present since at least 02/28/2023. MM/MM scr BI tomosynthesis [id number] IMPRESSION: BI-RADS: 2 - Benign. FOLLOW UP: 1 Year Follow-up
== END 2025-04-24 07:59 | disposition home or self-care (01) ==
PROVIDERS: PCP Family Medicine; Visit Provider Family Medicine
DX: Z12.31 Encounter for screening mammogram for malignant neoplasm of breast (principal); R92.323 Mammographic fibroglandular density, bilateral breasts; N64.89 Other specified disorders of breast
CPT/HCPCS: 77063; 77067

== ENCOUNTER → 2025-05-01 06:56 | Outpatient (BNVA) | payer MEDICARE, MEDICAID, SELFPAY | PROVIDERS: PCP Family Medicine; Visit Provider Podiatrist Foot & Ankle Surgery | DX: E11.8 Type 2 diabetes mellitus with unspecified complications (principal); B35.1 Tinea unguium; G62.9 Polyneuropathy, unspecified; R60.9 Edema, unspecified; S93.402A Sprain of unspecified ligament of left ankle, initial encounter; E11.42 Type 2 diabetes mellitus with diabetic polyneuropathy; X58.XXXA Exposure to other specified factors, initial encounter | CPT/HCPCS: 11721; 99213 ==